=== PATIENT | male | born 1970 | race Caucasian/White ===

== ENCOUNTER 2016-12-21 12:11 | Emergency (ER) | payer OTHER ==
[2016-12-21] MEDS ORDERED: 0.9 % SODIUM CHLORIDE 1,000 ML IV ONE ×2 (12:28→13:08)
[2016-12-21 12:58] LABS: BASOPHILS % 1.3 (0.0-1.5); EOSINOPHILS % 4.7 % (0.0-6.8); MEAN CORPUSCULAR HEMOGLOBIN 31.9 pg (28.0-34.0); MONOCYTES % 5.2 % (0.0-11.0); NEUTROPHILS # 5.5 # k/uL (1.4-7.7)
--- NOTE | 2016-12-21 13:40 | ED Physician Documentation ---
General Adult - HISTORIAN Historian: patient - HPI Stated Complaint: generalized body cramping Chief Complaint: General Adult Onset: hours Timing: still present Severity: moderate Further Comments: yes (Pt is a 46 yo male who believes he is dehydrated. Pt states that he has crampy pain, and that he has had this happen before when he became dehydrated. Pt describes intense physical labor and sweating outdoors for the past few days. Pt has had mild nausea.) - ROS CONST: other (generalized cramping) EYES/ENT: none CVS/RESP: none GI/: nausea (mild, occasional) MS/SKIN/LYMPH: none NEURO/PSYCH: dizziness - PAST HX Past History: none Allergies/Adverse Reactions: Allergies Allergy/AdvReac Type Severity Reaction Status Date / Time iodine [Iodine] Allergy Verified 12/21/16 17:42 Home Medications: Ambulatory Orders Medication Instructions Recorded NK [NK] 12/21/16 - SOCIAL HX Smoking History: cigarettes - FAMILY HX Family History: No - VITAL SIGNS Vital Signs: Vital Signs Temp Pulse Resp BP Pulse Ox 133/86 02/18/13 20:20 - REVIEWED ASSESSMENTS Nursing Assessment Reviewed: Yes Vitals Reviewed: Yes Progress - Progress Progress: NS 2.5 L IVF improved ED Results Lab/Radiology - Lab Results Lab Results: Lab Results 12/21/16 12:45 WBC 8.60 K/ul K/ul (4.00-12.00) RBC 5.64 M/ul H M/ul (3.90-5.20) Hgb 18.0 g/dL g/dL (12.0-18.0) Hct 52.5 % % (37.0-53.0) MCV 93.0 fl fl (80.0-100.0) MCH 31.9 pg pg (28.0-34.0) MCHC 34.3 g/dL g/dL (30.0-36.0) RDW 13.5 % % (11.3-14.3) Plt Count 270 K/mm3 K/mm3 (130-400) Neut % (Auto) 63.5 % % (39.0-79.0) Lymph % (Auto) 23.4 % % (16.0-50.0) Graham % (Auto) 5.2 % % (0.0-11.0) Eos % (Auto) 4.7 % % (0.0-6.8) Baso % (Auto) 1.3 (0.0-1.5) Neut # 5.5 # k/uL # k/uL (1.4-7.7) Lymph # 2.0 # k/uL # k/uL (0.6-4.0) Graham # 0.4 # k/uL # k/uL (0.0-0.9) Eos # 0.4 # k/uL # k/uL (0.0-0.6) Baso # 0.1 # k/uL # k/uL (0.0-0.5) Reactive Lymphs % 2.0 % % (0.0-5.0) Reactive Lymphs # 0.2 # k/uL # k/uL (0.0-0.8) - Orders Orders: ED Orders Category Date Time Status Place Saline Lock/IV .PRN Care 12/21/16 12:28 Active CBC/PLATELET/DIFF Routine Lab 12/21/16 12:45 Completed CMP Routine Lab 12/21/16 12:45 Received 0.9 % Sodium Chloride [Normal Saline] 1,000 ml Med 12/21/16 12:28 Discontinued IV Q1H 0.9 % Sodium Chloride [Normal Saline] 1,000 ml Med 12/21/16 13:08 Active IV Q1H General Adult Physical Exam - PHYSICAL EXAM GENERAL APPEARANCE: moderate distress EENT: dry mucous membranes NECK: normal inspection, supple RESPIRATORY: no resp distress, chest non-tender, breath sounds normal CVS: reg rate & rhythm, heart sounds normal ABDOMEN: soft, no organomegaly, normal bowel sounds BACK: normal inspection, no CVA tenderness SKIN: warm/dry, normal color EXTREMITIES: non-tender, normal range of motion, no evidence of injury, no edema NEURO: oriented X3, motor nml, sensation nml Discharge Clincal Impression: Dehydration Referrals: Mariam Ochoa MD [Primary Care Provider] - Home Medications: Ambulatory Orders NK [NK] 12/21/16 Condition: Good Disposition: 01 HOME, SELF-CARE Decision to Admit: NO Decision Time: 15:23
[2016-12-21 14:00] LABS: eGFR (African) > 60; eGFR (Non-African) > 60
[2016-12-21] MEDS ORDERED: 0.9 % SODIUM CHLORIDE 500 ML IV ONE ×2 (14:26→14:30)
[2016-12-21 16:22] VITALS: BP 120/72
== END 2016-12-21 15:30 | disposition home or self-care (01) ==
LOC: ED 12:11
DX: E86.0 Dehydration (principal)
CPT/HCPCS: 80053; 85025; J7030; J7060; 96360; 99283; S1016

== ENCOUNTER 2017-11-22 20:39 | Emergency (ER) | payer OTHER ==
[2017-11-22] MEDS ORDERED: 0.9 % SODIUM CHLORIDE 1,000 ML IV ONE (21:04)
--- NOTE | 2017-11-22 21:04 | ED Physician Documentation ---
General Adult - HISTORIAN Historian: patient - HPI Stated Complaint: cramping, cough, back pain Chief Complaint: General Adult Onset: days ago Timing: still present Severity: moderate Further Comments: yes (Pt is a 47 yo male with c/o intermittent cramping--arms, legs, and stomach. Pt had what he calls a flu-like illness last week with sore throat and cough and called his pcp who rx'd a [id number] by phone. Pt has had cramping and malaise since and some L sided back pain. Pt has had kidney stones in the past, but this does not feel like a kidney stone he says. It's not a sharp pain, but more of an achy soreness. Pt has felt like this before when he's been dehydrated, he says.) - ROS CONST: other (malaise) EYES/ENT: sore throat (last week) CVS/RESP: cough GI/: other (L sided back pain) MS/SKIN/LYMPH: none - PAST HX Past History: other (ortho surgery) Allergies/Adverse Reactions: Allergies Allergy/AdvReac Type Severity Reaction Status Date / Time iodine [Iodine] Allergy Verified 11/22/17 21:00 Home Medications: Ambulatory Orders Medication Instructions Recorded NK [NK] 12/21/16 - SOCIAL HX Smoking History: cigarettes - FAMILY HX Family History: No - VITAL SIGNS Vital Signs: Vital Signs Temp Pulse Resp BP Pulse Ox 120/72 12/21/16 15:30 - REVIEWED ASSESSMENTS Nursing Assessment Reviewed: Yes Vitals Reviewed: Yes Progress - Progress Progress: CXR: no acute process. CT abd/pelvis w/o contrast: 6 x 3 mm calculus in the lower pole the left kidney without hydronephrosis. 8 x 4 mm calculus in the lower pole the right kidney without hydronephrosis. Mild calcification of the abdominal aorta without aneurysm. Mild diverticulosis of the sigmoid colon. No stones in the bladder. No pelvic fractures. No bowel obstruction. No focal hepatic or splenic pathology. Normal pancreas and adrenal glands. Mild lumbar spondylosis with evidence for prior spine surgery at L4/L5 and L5/S1. Impression: Bilateral kidney stones without hydronephrosis. NS 1 L IVF improved General Adult Physical Exam - PHYSICAL EXAM GENERAL APPEARANCE: mild distress EENT: pharynx normal NECK: normal inspection, supple RESPIRATORY: no resp distress, chest non-tender, breath sounds normal CVS: reg rate & rhythm, heart sounds normal ABDOMEN: soft, no organomegaly, normal bowel sounds BACK: normal inspection, CVA tenderness (L) SKIN: warm/dry, normal color EXTREMITIES: non-tender, normal range of motion, no evidence of injury, no edema NEURO: oriented X3, motor nml, sensation nml Discharge Clincal Impression: Dehydration, non-obstructing kidney stones/hematuria Referrals: Mariam Ochoa MD [Primary Care Provider] - Condition: Good Disposition: 01 HOME, SELF-CARE Decision to Admit: NO Decision Time: 23:04
[2017-11-22 21:26] LABS: BASOPHILS % 1.6 (0.0-1.5); EOSINOPHILS % 3.8 % (0.0-6.8); MEAN CORPUSCULAR HEMOGLOBIN 32.2 pg (28.0-34.0); MEAN CORPUSCULAR VOLUME 92.9 fl (80.0-100.0); MONOCYTES % 6.5 % (0.0-11.0); NEUTROPHILS # 3.8 # k/uL (1.4-7.7)
[2017-11-22 21:34] LABS: eGFR (African) > 60; eGFR (Non-African) 58
[2017-11-22 22:06] LABS: COLOR,URINE YELLOW (YELLOW)
[2017-11-22 22:07] LABS: APPEARANCE,URINE CLEAR (CLEAR); OCCULT BLOOD,URINE 2+ (NEGATIVE); PH URINE 5.5 (5.0 - 8.0)
[2017-11-23 00:15] VITALS: BP 115/78
--- NOTE | 2017-11-23 08:34 | Diagnostic Imaging Report ---
CHER PETTY [facility] [address] [facility] [address] [address] Report Submission Date: Nov 22, 2017 10:00:16 PM CDT Patient Study Name: PRERNA WASHINGTON Date: Nov 22, 2017 9:34:40 PM CDT Modality Type: DX Gender: M Description: CHEST : 72 Institution: [facility] Physician: CHER PETTY Chest PA and lateral views Clinical history: Productive cough , dyspnea and upper back pain . Normal heart shadow and mediastinum. Clear lungs without acute infiltrate or pleural effusion. Mild thoracic spondylosis. Impression: No active pulmonary pathology Electronically signed on Nov 22, 2017 10:00:16 PM CDT by: Brent LARSEN
--- NOTE | 2017-11-23 08:34 | Diagnostic Imaging Report ---
CHRE PETTY [facility] [address] [facility] [address] [place], [place]. [address] Report Submission Date: Nov 22, 2017 10:39:00 PM CDT Patient Study Name: PRERNA WASHINGTON Date: Nov 22, 2017 10:21:40 PM CDT Modality Type: CT\SR Gender: M Description: CT ABD PELVIS W/O CO : 72 Institution: [facility] Physician: CHER PETTY CT abdomen and pelvis without IV contrast Clinical history: Left flank pain with hematuria 6 x 3 mm calculus in the lower pole the left kidney without hydronephrosis. 8 x 4 mm calculus in the lower pole the right kidney without hydronephrosis. Mild calcification of the abdominal aorta without aneurysm. Mild diverticulosis of the sigmoid colon. No stones in the bladder. No pelvic fractures. No bowel obstruction. No focal hepatic or splenic pathology. Normal pancreas and adrenal glands. Mild lumbar spondylosis with evidence for prior spine surgery at L4/L5 and L5/S1. Impression: Bilateral kidney stones without hydronephrosis Electronically signed on Nov 22, 2017 10:39:00 PM CDT by: Brent LARSEN
== END 2017-11-22 23:46 | disposition home or self-care (01) ==
LOC: ED 20:39
DX: E86.0 Dehydration (principal)
CPT/HCPCS: 71046; 74176; 80053; 81002; 83690; 85025; J7030; 96360; 99283; S1016